=== PATIENT | female | born 1990 ===

== ENCOUNTER 2019-06-28 08:34 | Outpatient (CLI) | payer BC ==
[2019-06-28 09:30] LABS: BHCG - Serum Negative (NEGATIVE); Pregs Control Background? CLEAR/WHITE (CLR/WHITE); Pregs Control Bar Appear? YES (CONTROL BAR)
[2019-06-28 09:32] LABS: Follow-up Chemistry Comp? YES
--- NOTE | 2019-06-28 11:56 | RAD ---
HYSTEROSALPINGOGRAM: CLINICAL HISTORY: Infertility PROCEDURE: Informed consent was obtained. Utilizing standard sterile speculum exam, the cervix was lo calized and then sterilized with Betadine solution. A small catheter was then utilized to cannulate the endometrial canal, after which a low pressure instillation of contrast was performed, with subseq uent radiographic imaging. No procedural complications were present. Patient tolerated the procedure well. FINDINGS: Endometrial cavity: Unremarkable Fallopian tubes: Patent, bilaterally, with free spill. IMPRESSION: Normal HSG
[2019-06-28] MEDS ORDERED: Iopamidol 300 61% 50 ML VIAL FS ONE (12:53)
== END 2019-06-28 08:35 | disposition home or self-care (01) ==
LOC: RAD 08:34
PROVIDERS: ATTEND Obstetrics & Gynecology
DX: N97.9 Female infertility, unspecified (principal)
CPT/HCPCS: 36415; 58340; 74740; 84703; Q9967